=== PATIENT | male | born 1950 | race Caucasian/White ===

== ENCOUNTER 2023-12-17 13:05 | Outpatient (AMB) | payer MEDICARE, OTHER, SELFPAY ==
--- NOTE | 2023-12-17 13:08 | A.OFFVIS_ITS ---
Intake Visit Reasons: urethral stricture Intake Note: NEW Patient presents today to established treatment for Urethral Stricture: Meds- None Allergies to Antibiotic- No Known Allergies Blood Thinner- None Molder Setter Required: No Accompanied by: Self / Same As Patient Allergies No Known Allergies Allergy (Verified 12/17/23 13:30) HPI Comments Details: Reece is a 73-year-old male who is here as a new patient evaluation. Past medical history significant for heart condition, atrial fibrillation on Eliquis 5 mg b.i.d. He states he has had a history of urethral stricture diagnosed many years ago. He states that initially the stricture was dilated in the office by the urologist. About 1978 or 1979 he had cold knife incision of the stricture x2 and this procedure seemed to work for many years. Within the last year or 2 he is noticed that he is having more postvoid dribbling he was started on terazosin by his primary care doctor initially at 2 mg and then was increased up to 10 mg however the larger dose of terazosin affected his blood pressure and he was instructed by his environmental health safety manager to go back on the lower dose of terazosin 2 mg. He states more recently he had an ablation therapy for his cardiac condition and in recovery room he had difficulty voiding there were not able to catheterize him and finally he voided. I have discussed that given his age his prostate is likely at least mildly enlarged and may be contributing to his symptoms which she understands is why he was prescribed the terazosin. Will discuss alternative alpha blockers on follow-up Urinalysis no signs of infection. Bladder scan PVR 71 mL Plan discussed to stop the terazosin for now, will schedule office cystoscopy. [facility] Medical History Degeneration of lumbar intervertebral disc Right knee pain DIANA on CPAP Nodule of left lung Lumbar radiculitis Mood disorder Hx of viral pneumonia Decreased urine output Bilateral sciatica Allergic rhinitis Adenomatous duodenal polyp ADD (attention deficit disorder) Surgical History Hx of tonsillectomy Hx of inguinal hernia repair Hx of umbilical hernia repair Hx of colonoscopy Social History Patient Tobacco Use Status: Former Tobacco user Quit Date: 45 YEAR AGO (1978) Review of Systems Const All systems reviewed & are unremarkable except as noted in HPI and below Reports no additional complaints Eyes Reports no additional complaints ENT Reports no additional complaints Card Reports no additional complaints Resp Reports no additional complaints GI Reports no additional complaints Reports as per HPI Musc Reports no additional complaints Skin/Breast Reports system reviewed and no additional complaints, except as documented Neuro Reports no additional complaints Psych Reports no additional complaints Endo Reports no additional complaints Miquel/Lymph Reports no additional complaints Aller/Immun Reports no additional complaints Physical Exam Const General: healthy appearing, no acute distress and well developed Orientation/consciousness: patient oriented x3 HEENT Head: Yes normocephalic and Yes atraumatic Eyes Conjunctivae: conjunctivae normal Neck Neck: Yes normal visual inspection Chest Chest palpation & inspection: normal inspection of the chest Resp Effort & Inspection: normal respiratory effort Cardio Jugular venous distension: no JVD GI Inspection: Yes normal to inspection Palpation (GI): Soft to palpation Skin General skin exam: no rashes or lesions noted Neuro General: patient oriented x3 Extrem General: No pedal edema Psych Appearance: grossly normal Affect: normal affect Office Procedures Post Void Residual Post Residual Void Post Void Residual (PVR): 71 [id number] Void Residual by ultrasound Results AMB Urinalysis, Automated UA Leukoctes 0 Andrew/uL Last Edit by ASTER Crowell on 12/17/23 13:27 UA Nitrite Negative Last Edit by ASTER Crowell on 12/17/23 13:27 UA Urobilinogen 0.2 mg/dL Last Edit by ASTER Crowell on 12/17/23 13:2 7 UA Protein 0 mg/dL Last Edit by ASTER Crowell on 12/17/23 13:27 UA pH 6.0 Last Edit by ASTER Crowell on 12/17/23 13:27 UA Blood 10 Joey/uL Last Edit by ASTER Crowell on 12/17/23 13:27 UA Specific [place] 1.005 Last Edit by ASTER Crowell on 12/17/23 13: 27 UA Ketone Negative Last Edit by ASTER Crowell on 12/17/23 13:27 UA Bilirubin 0 mg/dL Last Edit by NATALIA CrowellA on 12/17/23 13:27 UA Glucose 0 mg/dL Last Edit by ASTER Crowell on 12/17/23 13:27 Results Reviewed Results Reviewed: Laboratory Last Values Urine pH (Auto) 6.0 12/17/23 13:26 Specific [place] (Auto) 1.005 12/17/23 13:26 Urine Protein (Auto) 0 mg/dL 12/17/23 13:26 Glucose (UA)(Auto) 0 mg/dL 12/17/23 13:26 Urine Ketones (Auto) Negative 12/17/23 13:26 Urine Blood (Auto) 10 Joey/uL 12/17/23 13:26 Urine Nitrite (Auto) Negative 12/17/23 13:26 Urine Bilirubin (Auto) 0 mg/dL 12/17/23 13:26 Urine Urobilinogen (Auto) 0.2 mg/dL 12/17/23 13:26 Leukocyte Esterase (Auto) 0 Andrew/uL 12/17/23 13:26 Assessment & Plan Assessment & Plan (1) Urethral stricture: Code(s): N35.919 - Unspecified urethral stricture, male, unspecified site Category: Medical (2) BPH (benign prostatic hyperplasia): Code(s): N40.0 - Benign prostatic hyperplasia without lower urinary tract symptoms Category: Medical (3) Post-void dribbling: Code(s): N39.43 - Post-void dribbling Category: Medical Plan discontinue terazosin, fu office cystoscopy Orders: Orders AMB Post Void Residual by ultrasound 12/17/23 N39.8 - Other specified disorders of urinary system AMB Urinalysis Automated 12/17/23 Z13.9 - Encounter for screening, unspecified Patient Instructions: The patient had an opportunity to ask questions regarding treatment plan. The patient expressed understanding and agreement with the above treatment plan. The patient is aware they should contact our office by phone for worsening of their current condition or the appearance of new symptoms. Compliance is encouraged with any medications and followup testing that is ordered. It is a privilege to be allowed the opportunity to participate in the urologic care of your patient. If you have any questions or concerns regarding treatment for the above conditions please do not hesitate to contact me. The office telephone contact is [phone]. This note is constructed in part using voice recognition software. While every effort has been made to ensure accuracy mechanical product engineer errors may have been included. Yours sincerely, Gilberto Rizvi MD Coding Level of Care Code New Pt Level 4 (41080) Diagnoses Urethral stricture N35.919 BPH (benign prostatic hyperplasia) N40.0 Post-void dribbling N39.43 CPT Codes Post Residual Void - PVR CPT Code: 01487-Ljtg Void Residual by ultrasound ([id number])
== END 2023-12-17 13:38 | disposition home or self-care (01) ==
PROVIDERS: PCP Internal Medicine; Visit Provider Urology
DX: N35.919 Unspecified urethral stricture, male, unspecified site (principal); N40.0 Benign prostatic hyperplasia without lower urinary tract symptoms; N39.43 Post-void dribbling
CPT/HCPCS: 99204

== ENCOUNTER → 2023-12-17 13:05 | Outpatient (BNVA) | payer MEDICARE, OTHER, SELFPAY | PROVIDERS: PCP Internal Medicine; Visit Provider Urology | DX: N35.919 Unspecified urethral stricture, male, unspecified site (principal); N40.0 Benign prostatic hyperplasia without lower urinary tract symptoms; N39.43 Post-void dribbling; N39.8 Other specified disorders of urinary system | CPT/HCPCS: 51798; 81003; 99202 ==

== ENCOUNTER 2024-01-28 13:36 | Outpatient (AMB) | payer MEDICARE, OTHER, SELFPAY ==
--- NOTE | 2024-01-28 13:44 | A.OFFVIS_ITS ---
Intake Visit Reasons: cysto Intake Note: Patient presents today for a CYSTOSCOPY Procedure: Meds: Terasozin Allergies to Antibiotic: No Known Allergies Blood Thinner: Eliquis Disposable Uro-G HD Cystoscope Cannula: Lot: [id number] Exp: 08/25/2026 Merchandising Lead Required: No Flatwork Feeder: Flatwork Feeder Present Accompanied by: Self / Same As Patient Allergies No Known Allergies Allergy (Verified 12/17/23 13:30) HPI Comments Details: 01/28/2024--Reece is a 73-year-old male who was initially evaluated on 12/17/2023 with complaints of weak urinary stream he stated he has a history of urethral stricture. He states that he was prescribed terazosin which was not helping discontinue the dose and I discussed discontinuing the terazosin. He is here for office cystoscopy. Cystoscopy findings mid bulbous urethral stricture. Plan discussed outpatient cystoscopy with retrograde urethrogram and urethral dilation versus incision urethral stricture. Also discussed with the patient that after several urethral dilations or incisions the urethra generally will continue to scar and a urethroplasty may be considered for a longer lasting result. Review of chart: 12/17/23--Reece is a 73-year-old male who is here as a new patient evaluation. Past medical history significant for heart condition, atrial fibrillation on Eliquis 5 mg b.i.d. He states he has had a history of urethral stricture diagnosed many years ago. He states that initially the stricture was dilated in the office by the urologist. About 1978 or 1979 he had cold knife incision of the stricture x2 and this procedure seemed to work for many years. Within the last year or 2 he is noticed that he is having more postvoid dribbling he was started on terazosin by his primary care doctor initially at 2 mg and then was increased up to 10 mg however the larger dose of terazosin affected his blood pressure and he was instructed by his credit relationship manager to go back on the lower dose of terazosin 2 mg. He states more recently he had an ablation therapy for his cardiac condition and in recovery room he had difficulty voiding there were not able to catheterize him and finally he voided. I have discussed that given his age his prostate is likely at least mildly enlarged and may be contributing to his symptoms which she understands is why he was prescribed the terazosin. Will discuss alternative alpha blockers on follow-up. Urinalysis no signs of infection. Bladder scan PVR 71 mL. Plan discussed to stop the terazosin for now, will schedule office cystoscopy. [facility] Medical History Degeneration of lumbar intervertebral disc Right knee pain DIANA on CPAP Nodule of left lung Lumbar radiculitis Mood disorder Hx of viral pneumonia Decreased urine output Bilateral sciatica Allergic rhinitis Adenomatous duodenal polyp ADD (attention deficit disorder) Surgical History Hx of tonsillectomy Hx of inguinal hernia repair Hx of umbilical hernia repair Hx of colonoscopy Social History Patient Tobacco Use Status: Former Tobacco user Review of Systems Const All systems reviewed & are unremarkable except as noted in HPI and below Reports no additional complaints Eyes Reports no additional complaints ENT Reports no additional complaints Card Reports no additional complaints Resp Reports no additional complaints GI Reports no additional complaints Reports as per HPI Musc Reports no additional complaints Skin/Breast Reports system reviewed and no additional complaints, except as documented Neuro Reports no additional complaints Psych Reports no additional complaints Endo Reports no additional complaints Miquel/Lymph Reports no additional complaints Aller/Immun Reports no additional complaints Office Procedures Cystoscopy Consent Discussed risk and benefit or proposed procedure with the patient. Information consent for procedure given to the patient. Discussed technical aspects, risks, benefits and alternatives in full. Addressed all of the patient's questions and concerns regarding the procedure. The patient demonstrated knowledge and understanding. They wish to proceed with this procedure. Preparation The patient was prepped in the usual manner. A aquatics lifeguard was present and in the room. Genitalia was prepped with betadine solution in a sterile manner. Lidocaine Jelly 2% was placed into the urethra and 16Fr flexible Olympus cystoscope was inserted into the meatus after adequate lubrication. Procedure Time out per protocol performed. The 16 [place] flexible cystoscope was passed transurethrally, findings: a mid bulbous urethral stricture was visualized. [id number] DISPOSABLE SCOPE URO-G FLEXIBLE SCOPE Procedure code (CPT) selection complete Office Meds lidocaine HCl 2 % mucosal jelly in applicator Performing Provider: Gilberto Rizvi MD Performing Location: [facility] [place] [facility] Administered by: Rui Cid LPN on 01/28/24 13:45 Dose Route Admin Location Dispensed Lot Number Expiration Date [facility] Ssis Ssrs Developer 10 mL intra-urethral 20 mL naproxen 500 mg tablet Performing Provider: Gilberto Rizvi MD Performing Location: [facility] Urology [facility] [place] Documented (not given) by: Rui Cid LPN on 01/28/24 13:45 Reason Not Given: Patient Refused ciprofloxacin HCl 500 mg tablet Performing Provider: Gilberto Rizvi MD Performing Location: [facility] [place] Urology [facility] [place] Administered by: Rui Cid LPN on 01/28/24 13:45 Dose Route Admin Location Dispensed Lot Number Expiration Date [place] Ssis Ssrs Developer 500 mg PO 1 tab Results AMB Urinalysis, Automated UA Leukoctes 0 Andrew/uL Last Edit by ASTER Crowell on 01/28/24 13:47 UA Nitrite Negative Last Edit by ASTER Crowell on 01/28/24 13:47 UA Urobilinogen 0.2 mg/dL Last Edit by ASTER Crowell on 01/28/24 13:4 7 UA Protein 0 mg/dL Last Edit by ASTER Crowell on 01/28/24 13:47 UA pH 6.0 Last Edit by ASTER Crowell on 01/28/24 13:47 UA Blood 10 Joey/uL Last Edit by ASTER Crowell on 01/28/24 13:47 UA Specific [place] 1.010 Last Edit by ASTER Crowell on 01/28/24 13: 47 UA Ketone Negative Last Edit by ASTER Crowell on 01/28/24 13:47 UA Bilirubin 0 mg/dL Last Edit by ASTER Crowell on 01/28/24 13:47 UA Glucose 0 mg/dL Last Edit by ASTER Crowell on 01/28/24 13:47 Results Reviewed Results Reviewed: Laboratory Last Values Urine pH (Auto) 6.0 01/28/24 13:45 Specific [place] (Auto) 1.010 01/28/24 13:45 Urine Protein (Auto) 0 mg/dL 01/28/24 13:45 Glucose (UA)(Auto) 0 mg/dL 01/28/24 13:45 Urine Ketones (Auto) Negative 01/28/24 13:45 Urine Blood (Auto) 10 Joey/uL 01/28/24 13:45 Urine Nitrite (Auto) Negative 01/28/24 13:45 Urine Bilirubin (Auto) 0 mg/dL 01/28/24 13:45 Urine Urobilinogen (Auto) 0.2 mg/dL 01/28/24 13:45 Leukocyte Esterase (Auto) 0 Andrew/uL 01/28/24 13:45 Assessment & Plan Assessment & Plan (1) Urethral stricture: Code(s): N35.919 - Unspecified urethral stricture, male, unspecified site Category: Medical (2) BPH (benign prostatic hyperplasia): Code(s): N40.0 - Benign prostatic hyperplasia without lower urinary tract symptoms Category: Medical (3) Post-void dribbling: Code(s): N39.43 - Post-void dribbling Category: Medical (4) Preop testing: Code(s): Z01.818 - Encounter for other preprocedural examination Category: Medical Plan outpatient cystoscopy with retrograde urethrogram and urethral dilation versus incision urethral stricture. Orders: Orders AMB Urinalysis Automated Today Z13.9 - Encounter for screening, unspecified Basic Metabolic Panel Today Z01.818 - Encounter for other preprocedural examination Complete Blood Count Auto Diff Today Z01.818 - Encounter for other preprocedural examination AMB Cystoscopy Today N39.43 - Post-void dribbling, N40.0 - Benign prostatic hyperplasia without lower urinary tract symptoms ECG 12 lead EKG Today N35.919 - Unspecified urethral stricture, male, u nspecified site, Z01.818 - Encounter for other preprocedural examination Patient Instructions: The patient had an opportunity to ask questions regarding treatment plan. The patient expressed understanding and agreement with the above treatment plan. The patient is aware they should contact our office by phone for worsening of their current condition or the appearance of new symptoms. Compliance is encouraged with any medications and followup testing that is ordered. It is a privilege to be allowed the opportunity to participate in the urologic care of your patient. If you have any questions or concerns regarding treatment for the above conditions please do not hesitate to contact me. The office telephone contact is [phone]. This note is constructed in part using voice recognition software. While every effort has been made to ensure accuracy narcotics and/or vice detective errors may have been included. Yours sincerely, Gilberto Rizvi MD Coding Level of Care Code Est Pt Level 3 (49446) Diagnoses Urethral stricture N35.919 BPH (benign prostatic hyperplasia) N40.0 Post-void dribbling N39.43 Preop testing Z01.818 CPT Codes Cystoscopy - CPT: 78539-[id number] ([id number])
== END 2024-01-28 14:28 | disposition home or self-care (01) ==
PROVIDERS: PCP Internal Medicine; Visit Provider Urology
DX: N40.0 Benign prostatic hyperplasia without lower urinary tract symptoms (principal); N39.43 Post-void dribbling; Z01.818 Encounter for other preprocedural examination; N35.919 Unspecified urethral stricture, male, unspecified site; Z13.9 Encounter for screening, unspecified
CPT/HCPCS: 52000; 99213

== ENCOUNTER → 2024-01-28 13:36 | Outpatient (BNVA) | payer MEDICARE, OTHER, SELFPAY | PROVIDERS: PCP Internal Medicine; Visit Provider Urology | DX: Z01.818 Encounter for other preprocedural examination (principal); N35.919 Unspecified urethral stricture, male, unspecified site; N40.0 Benign prostatic hyperplasia without lower urinary tract symptoms; N39.43 Post-void dribbling | CPT/HCPCS: 52000; 81003; 99212 ==

== ENCOUNTER 2024-02-23 09:57 | Day surgery (SDC) | payer MEDICARE, OTHER, SELFPAY ==
[2024-02-23] VITALS (8 sets, daily range): BP systolic 124–139; BP diastolic 74–87; PULSE 51–70; RESP 16–18; TEMP 36.1–36.9; O2SAT 97–100; BMI 26.6
--- NOTE | ~2024-02-23 | FL_ITS ---
EXAMINATION: XR FLUOROSCOPY WITH IMAGES CLINICAL INFORMATION: Retrograde urethrogram with balloon dilatation. COMPARISON: None available. TECHNIQUE: Fluoroscopy Supervised By: Dr. Rizvi. Fluoroscopy Time: 14.5 sec. Cumulative Dose: 4.04 mGy. DAP: None given. Images: 8. FINDINGS: Intraoperative fluoroscopy and spot films were performed during a procedure in the OR. A balloon is seen overlying the pendulous urethra. There is a tight stricture, which appears to be present in this region. The balloon is never seen to be fully inflated. A guidewire is placed into the bladder and a catheter is seen in the bladder on the final image. Please correlate with Dr. Rizvi's report for complete details. A balloon is seen inflated in the urethra, likely the pendulous portion. The balloon waist never appears to expand. FL/FL guidance in OR IMPRESSION: Intraoperative fluoroscopy and spot films were obtained. Please see Dr. Rizvi's report for complete details.
[2024-02-23] MEDS: Lactated Ringers 1,000 ML 50 ML IVCONT (11:18)
--- NOTE | 2024-02-23 11:26 | HO.ANESPROP2 ---
[facility] Active Problems Active Problems: All Active Problems Preop testing (Acute) Post-void dribbling (Acute) BPH (benign prostatic hyperplasia) (Acute) Urethral stricture (Acute) Past Medical History Medical History Urethral stricture Degeneration of lumbar intervertebral disc Right knee pain DIANA on CPAP Nodule of left lung Lumbar radiculitis Mood disorder Hx of viral pneumonia Decreased urine output Bilateral sciatica Allergic rhinitis Adenomatous duodenal polyp ADD (attention deficit disorder) Surgical History Surgical History H/O cardiac radiofrequency ablation Hx of tonsillectomy Hx of inguinal hernia repair Hx of umbilical hernia repair Hx of colonoscopy History of Problems with Anesthesia: No Social History Social History Patient Tobacco Use Status: Former Tobacco user Use of substances other than those prescribed or required for medical reasons: Yes Are you DNR?: No Advance Directives: No Advance Directives Information Provided: Yes Meds Allergies Allergy/AdvReac Type Severity Reaction Status Date / Time No Known Allergies Allergy Verified 12/17/23 13:30 Active Medications: Current Medications Lactated Ringer's (Lr) 1,000 mls @ 50 mls/hr IVCONT .Q20H JONN Last Admin: 02/23/24 11:18 Dose: 50 mls/hr Home Medications ?Medication ?Instructions ?Recorded ?Confirmed ?Last Taken ?Type acetaminophen 500 mg capsule 500 mg PO Q6H PRN 12/17/23 Unknown History apixaban 5 mg tablet (Eliquis) 5 mg PO BID 12/17/23 Unknown History atenolol 25 mg tablet 12.5 mg PO 12/17/23 Unknown History cholecalciferol (vitamin D3) 10 10 mcg PO DAILY 12/17/23 Unknown History mcg (400 unit) capsule doxycycline monohydrate 100 mg 100 mg PO BID 12/17/23 Unknown History capsule escitalopram oxalate 10 mg tablet 20 mg PO 12/17/23 Unknown History fish oil PO ONCE 12/17/23 02/16/24 History s-adenosylmethionine 400 mg tablet 800 mg PO DAILY 12/17/23 Unknown History (AMBIKA-e) terazosin 2 mg capsule 2 mg PO BEDTIME 12/17/23 Unknown History Exam Height,Weight and Vital Signs: Height 6 ft Weight 88.904 kg Last Vital Signs Temp 98.4 F 02/23/24 11:03 Pulse 60 02/23/24 11:03 Resp 16 02/23/24 11:03 BP 137/76 02/23/24 11:03 Pulse Ox 98 02/23/24 11:03 O2 Del Method Room Air 02/23/24 11:03 Airway Mallampati Class: III TM Dist: >3cm Neck ROM: Full Loose/Missing/Broken Teeth: No Heart: RRR Lungs: CTA Assessment and Plan Assessment Anesthesia Assessment: Anesthesia Plan Discussed and Chart Reviewed Final Anesthetic Review History of Problems with Anesthesia: No NPO: Yes ASA Class: III Final Preanesthetic Review: Meds/Allgs Chart Reviewed, Consent Obtained/Reviewed and Anes Risks/Benef Reviewed Patient Risk: Intermediate Procedure Risk: Low Anesthetic Plan Anesthetic Plan: GA Disposition: Standard PACU
--- NOTE | 2024-02-23 11:29 | MHC.SHP ---
Pre-Procedural Eval Section A - 24 Hr Update-Section A only Date of Service: 02/23/24 The patient is an INPATIENT: No The patient has been examined within 24 hours of the surgical procedure. The History & Physical has been completed within 30 days and I have reviewed it.: Yes Section B - Complete if H&P > 30 days Chief Complaint: Unspecified urethral stricture, male, unspecified Allergies: Allergies Allergy/AdvReac Type Severity Reaction Status Date / Time No Known Allergies Allergy Verified 12/17/23 13:30 Plan Diagnosis/Plan: Unchanged I have reviewed the history and physical and performed a pertinent physical examination on my patient. No changes have occurred unless specified. Cystoscopy, urethrogram, urethral dilation, incision. Time Spent With Patient Time: Total time managing care of this patient today ____ minutes.
[2024-02-23] MEDS: Phenazopyridine HCL 200 MG TABLET PO (14:34)
--- NOTE | 2024-03-13 22:58 | W.PM.OPN ---
Operative Note Operative Note Date of Service: 02/23/24 Narrative: PREOP DIAGNOSIS: Urethral stricture POSTOP DIAGNOSIS: Urethral stricture PROCEDURE: CYSTOSCOPY, Urethral dilation SURGEON: Gilberto Rizvi MD ANESTHESIA: General Details of procedure: The patient was brought into the operating room placed on the OR table in supine position. IV Antibiotic confirmed. General anesthesia was administered. The patient was repositioned into lithotomy position, prepped and draped in the usual sterile fashion. Time-out was done per protocol. A 22 fr cystoscope was placed transurethrally to the mid to proximal bulbous urethra to level of stricture, retrograde urethrogram was performed. Contrast was injected into the bladder. The stricture length was short. A guide wire was passed through the stricture into the bladder, using the urethral dilators the stricture was dilated sequentially starting with the 8 fr up to a 22 fr size. The 22 fr cystoscope was passed into the bladder. The prostate was non obstructive. The right and left ureteral orifices were visualized. There were no suspicious bladder lesions seen. The cystoscope was removed, a 20 fr [place] was placed. The patient was brought out of anesthesia and taken to recovery in stable condition. Complications: None Drains: 20 fr [place]
== END 2024-02-23 15:05 | disposition home or self-care (01) ==
PROVIDERS: PCP Internal Medicine; Visit Provider Urology
PROC: 0TJB8ZZ Inspection of Bladder, Via Natural or Artificial Opening Endoscopic (ICD-10-PCS; CPT 52005; principal; 2024-02-23 11:50)
DX: N35.919 Unspecified urethral stricture, male, unspecified site (principal); N40.0 Benign prostatic hyperplasia without lower urinary tract symptoms; N39.43 Post-void dribbling; R91.1 Solitary pulmonary nodule; Z87.01 Personal history of pneumonia (recurrent); G47.33 Obstructive sleep apnea (adult) (pediatric); Z79.899 Other long term (current) drug therapy; Z79.01 Long term (current) use of anticoagulants; Z99.89 Dependence on other enabling machines and devices; Z87.891 Personal history of nicotine dependence
CPT/HCPCS: 52281; C1758; C1769; J0690; J1100; J1885; J2405; J2704; J3010; Q9967

== ENCOUNTER → 2024-02-23 09:57 | Outpatient (BNV) | payer MEDICARE, OTHER, SELFPAY | PROVIDERS: PCP Internal Medicine; Visit Provider Urology | DX: N35.919 Unspecified urethral stricture, male, unspecified site (principal) | CPT/HCPCS: 52281 ==

== ENCOUNTER → 2024-02-29 08:30 | Outpatient (BNVA) | payer MEDICARE, OTHER, SELFPAY | PROVIDERS: PCP Internal Medicine; Visit Provider Urology ==

== ENCOUNTER 2024-03-11 14:14 | Outpatient (AMB) | payer MEDICARE, OTHER, SELFPAY ==
--- NOTE | 2024-03-11 14:14 | A.OFFVIS_ITS ---
Intake Visit Reasons: Retrograde, urethral dilation- follow up Intake Note: Patient presents today for retrograde urethral dilation f/u Meds: Terasozin,phenazopyridine Allergies to Antibiotic: No Known Allergies Blood Thinner: Eliquis today's PVR: 0ML'S Plan Coordinator Required: No Mail Forwarding System Markup Clerk: Mail Forwarding System Markup Clerk Present Accompanied by: Self / Same As Patient Allergies No Known Allergies Allergy (Verified 03/11/24 14:16) HPI Comments Details: 03/11/2024--Gian is status post cystoscopy urethral dilation on 02/23/2024 a 20 fr Joy catheter was placed. He saw the nurse on 02/29/2024 to have the Joy catheter removed. The patient complains that there was some pus around the Joy and he ended up with a urinary infection, he was treated with medication and is voiding now without any difficulty. Urinalysis is negative. Bladder scan PVR 0 mL. Plan follow-up in 1 year, PSA screening. Review of chart: 01/28/2024--Reece is a 73-year-old male who was initially evaluated on 12/17/2023 with complaints of weak urinary stream he stated he has a history of urethral stricture. He states that he was prescribed terazosin which was not helping discontinue the dose and I discussed discontinuing the terazosin. He is here for office cystoscopy. Cystoscopy findings mid bulbous urethral stricture. Plan discussed outpatient cystoscopy with retrograde urethrogram and urethral dilation versus incision urethral stricture. Also discussed with the patient that after several urethral dilations or incisions the urethra generally will continue to scar and a urethroplasty may be considered for a longer lasting result. 12/17/23--Reece is a 73-year-old male who is here as a new patient evaluation. Past medical history significant for heart condition, atrial fibrillation on Eliquis 5 mg b.i.d. He states he has had a history of urethral stricture diagnosed many years ago. He states that initially the stricture was dilated in the office by the urologist. About 1978 or 1979 he had cold knife incision of the stricture x2 and this procedure seemed to work for many years. Within the last year or 2 he is noticed that he is having more postvoid dribbling he was started on terazosin by his primary care doctor initially at 2 mg and then was increased up to 10 mg however the larger dose of terazosin affected his blood pressure and he was instructed by his setter cold rolling machine to go back on the lower dose of terazosin 2 mg. He states more recently he had an ablation therapy for his cardiac condition and in recovery room he had difficulty voiding there were not able to catheterize him and finally he voided. I have discussed that given his age his prostate is likely at least mildly enlarged and may be contributing to his symptoms which she understands is why he was prescribed the terazosin. Will discuss alternative alpha blockers on follow-up. Urinalysis no signs of infection. Bladder scan PVR 71 mL. Plan discussed to stop the terazosin for now, will schedule office cystoscopy. [facility] Medical History Urethral stricture Degeneration of lumbar intervertebral disc Right knee pain DIANA on CPAP Nodule of left lung Lumbar radiculitis Mood disorder Hx of viral pneumonia Decreased urine output Bilateral sciatica Allergic rhinitis Adenomatous duodenal polyp ADD (attention deficit disorder) Surgical History H/O cardiac radiofrequency ablation Hx of tonsillectomy Hx of inguinal hernia repair Hx of umbilical hernia repair Hx of colonoscopy Social History Patient Tobacco Use Status: Former Tobacco user Review of Systems Const All systems reviewed & are unremarkable except as noted in HPI and below Reports no additional complaints Eyes Reports no additional complaints ENT Reports no additional complaints Card Reports no additional complaints Resp Reports no additional complaints GI Reports no additional complaints Reports as per HPI Musc Reports no additional complaints Skin/Breast Reports system reviewed and no additional complaints, except as documented Neuro Reports no additional complaints Psych Reports no additional complaints Endo Reports no additional complaints Miquel/Lymph Reports no additional complaints Aller/Immun Reports no additional complaints Results AMB Urinalysis, Automated UA Leukoctes 0 Andrew/uL Last Edit by SABINE Fletcher on 03/11/24 14:26 UA Nitrite Negative Last Edit by SABINE Fletcher on 03/11/24 14:26 UA Urobilinogen 0.2 mg/dL [facility] 03/11/[facility] 14:2 6 UA Protein 0 mg/dL Last Edit [facility] on 03/11/24 14:26 UA pH 6.0 Last Edit by Albaro Vallejo [facility] on 03/11/24 14:26 UA Blood 0 Joey/uL Last Edit by Albaro Vallejo [facility] on 03/11/24 14:26 UA Specific [place] 1.015 Last Edit by Albaro Vallejo [facility] on 03/11/24 14: 26 UA Ketone Negative Last Edit by SABINE Fletcher on 03/11/24 14:26 UA Bilirubin 0 mg/dL Last Edit by Albaro Vallejo [facility] on 03/11/24 14:26 UA Glucose 0 mg/dL Last Edit by Albaro Vallejo [facility] on 03/11/24 14:26 Results Reviewed Results Reviewed: Laboratory Last Values Urine pH (Auto) 6.0 03/11/24 14:26 Specific [place] (Auto) 1.015 03/11/24 14:26 Urine Protein (Auto) 0 mg/dL 03/11/24 14:26 Glucose (UA)(Auto) 0 mg/dL 03/11/24 14:26 Urine Ketones (Auto) Negative 03/11/24 14:26 Urine Blood (Auto) 0 Joey/uL 03/11/24 14:26 Urine Nitrite (Auto) Negative 03/11/24 14:26 Urine Bilirubin (Auto) 0 mg/dL 03/11/24 14:26 Urine Urobilinogen (Auto) 0.2 mg/dL 03/11/24 14:26 Leukocyte Esterase (Auto) 0 Andrew/uL 03/11/24 14:26 Assessment & Plan Assessment & Plan (1) Urethral stricture: Code(s): N35.919 - Unspecified urethral stricture, male, unspecified site Category: Medical (2) BPH (benign prostatic hyperplasia): Code(s): N40.0 - Benign prostatic hyperplasia without lower urinary tract symptoms Category: Medical (3) Screening PSA (prostate specific antigen): Code(s): Z12.5 - Encounter for screening for malignant neoplasm of prostate Category: Medical Plan Plan follow-up in 1 year, PSA screening. Orders: Orders AMB Urinalysis Automated 03/11/24 Z13.9 - Encounter for screening, unspecified PSA,Total (Free>4and<10) 11 Months Z12.5 - Encounter for screening for malignant neoplasm of prostate Patient Instructions: The patient had an opportunity to ask questions regarding treatment plan. The patient expressed understanding and agreement with the above treatment plan. The patient is aware they should contact our office by phone for worsening of their current condition or the appearance of new symptoms. Compliance is encouraged with any medications and followup testing that is ordered. It is a privilege to be allowed the opportunity to participate in the urologic care of your patient. If you have any questions or concerns regarding treatment for the above conditions please do not hesitate to contact me. The office telephone contact is [phone]. This note is constructed in part using voice recognition software. While every effort has been made to ensure accuracy benefits specialist errors may have been included. Yours sincerely, Gilberto Rizvi MD Coding Level of Care Code Est Pt Level 3 (78192) Diagnoses Urethral stricture N35.919 BPH (benign prostatic hyperplasia) N40.0 Screening PSA (prostate specific antigen) Z12.5
== END 2024-03-11 14:53 | disposition home or self-care (01) ==
PROVIDERS: PCP Internal Medicine; Visit Provider Urology
DX: N35.919 Unspecified urethral stricture, male, unspecified site (principal); N40.0 Benign prostatic hyperplasia without lower urinary tract symptoms; Z12.5 Encounter for screening for malignant neoplasm of prostate
CPT/HCPCS: 99213

== ENCOUNTER → 2024-03-11 14:14 | Outpatient (BNVA) | payer MEDICARE, OTHER, SELFPAY | PROVIDERS: PCP Internal Medicine; Visit Provider Urology | DX: N40.0 Benign prostatic hyperplasia without lower urinary tract symptoms (principal); N35.919 Unspecified urethral stricture, male, unspecified site; Z12.5 Encounter for screening for malignant neoplasm of prostate | CPT/HCPCS: 81003; 99212 ==